=== PATIENT | male | born 1955 | race Caucasian/White ===

== ENCOUNTER 2018-03-31 21:05 | Inpatient (IN) | payer OTHER, BC ==
[~2018-03-31] VITALS: Ht 177.8 cm; Wt 78.6 kg
[2018-03-31 22:17] LABS: ALBUMIN 4.4 g/dL (3.2-4.8); CHLORIDE 88 mEq/L (99-109); POTASSIUM 3.5 mEq/L (3.7-5.4); SODIUM 132 mEq/L (136-147)
[2018-03-31 22:19] LABS: HEMATOCRIT 30.2 % (38.0-50.0); HEMOGLOBIN 10.8 G/DL (12.5-16.6); MCH 35.4 PG (29.0-34.0); MCHC 35.8 G/DL (30.0-36.0); NRBC (%) 0.5 /100 WBC (0-0); RBC DIS.WIDTH-CV 16.8 % (11.8-14.6); RBC DIS.WIDTH-SD 60.8 % (39-53); RED BLOOD COUNT 3.05 M/uL (4.00-5.50); WHITE BLOOD COUNT 3.9 K/uL (4.1-10.2)
[2018-03-31 22:20] LABS: GLUCOSE 105 mg/dL (70-99); TOTAL PROTEIN 7.8 g/dL (6.4-8.3)
[2018-03-31 22:22] LABS: TOTAL BILIRUBIN 1.8 mg/dL (0.0-1.0)
[2018-03-31 22:23] LABS: ALKALINE PHOSPHATASE 62 IU/L (3-129); SERUM ETHYL ALCOHOL < 10 mg/dL
[2018-03-31 22:24] LABS: CREATININE 1.2 mg/dL (0.6-1.3); GFR ESTIMATE (CALCULATED) > 59 mL/min/ (58.99-99999)
[2018-03-31 22:25] LABS: AST (GOT) 83 IU/L (2-34); UREA NITROGEN (BUN) 19 mg/dL (9-23)
[2018-03-31 22:26] LABS: ALT (GPT) 41 IU/L (3-49)
[2018-03-31 22:27] LABS: TROP-I INTERPRETATION NEGATIVE; TROPONIN-I < 0.01 ng/mL (0.0-0.30)
[2018-03-31 22:53] LABS: IMM.PLATELET FRACTION 9.2 (1-7); PLAT.SUFFICIENCY DECREASED; PLATELET COUNT UNABLE TO REPORT K/uL (156-360)
[2018-04-01] VITALS (7 sets, daily range): BP systolic 106–185; BP diastolic 55–81
[2018-04-01 01:29] LABS: APPEARANCE CLEAR ((CLEAR)); BILIRUBIN NEGATIVE; BLOOD MODERATE; COLOR AMBER ((YELLOW)); GLUCOSE (STRIP) NEGATIVE; KETONES 20; LEUKOCYTES NEGATIVE; NITRITE NEGATIVE; PROTEIN (STRIP) >=500; SPECIFIC GRAVITY 1.023 (1.000-1.030)
[2018-04-01 01:51] LABS: AMPHETAMINE NEGATIVE (500 ng/mL); BARBITURATES NEGATIVE (200 ng/mL); BENZODIAZEPINES NEGATIVE (150 ng/mL); BUPRENORPHINE NEGATIVE (10 ng/mL); COCAINE NEGATIVE (150 ng/mL); METHADONE NEGATIVE (200 ng/mL); METHAMPHETAMINE NEGATIVE (500 ng/mL); OPIATES (MORPHINE) NEGATIVE (100 ng/mL); OXYCODONE NEGATIVE (100 ng/mL); PHENCYCLIDINE NEGATIVE (25 ng/mL); PROPOXYPHENE NEGATIVE (300 ng/mL); THC CANNABINOIDS PRESUMPTIVE POSITIVE (50 ng/mL); TRICYCLIC ANTIDEPRESSANTS NEGATIVE (300 ng/mL)
[2018-04-01 01:53] LABS: BACTERIA RARE /HPF; EPITHELIAL CELLS RARE /HPF; MUCUS 1+ /LPF; RED BLOOD CELLS 0-5 /HPF (0-5); UCUL ADDED? NO; WHITE BLOOD CELLS 0-5 /HPF (0-5)
[2018-04-01 02:28] LABS: INTER. NORMALIZED RATIO 1.1
[2018-04-01 02:31] LABS: PTT 25.9 SEC (25-37)
[2018-04-01 10:01] LABS: HEMATOCRIT 23.7 % (38.0-50.0); MCV 101.7 FL (86-99)
[2018-04-01 10:22] LABS: HEMOGLOBIN 8.1 G/DL (12.5-16.6)
[2018-04-01 15:48] LABS: HEMATOCRIT 23.2 % (38.0-50.0); HEMOGLOBIN 7.8 G/DL (12.5-16.6); MCV 103.6 FL (86-99)
[2018-04-02 00:53] LABS: HEMATOCRIT 22.4 % (38.0-50.0); HEMOGLOBIN 7.8 G/DL (12.5-16.6); MCV 102.3 FL (86-99)
[2018-04-02 06:04] LABS: BASOPHIL (%) 0.9 % (0-1); EOSINOPHIL COUNT 0.1 K/uL (0-0.3); HEMATOCRIT 22.9 % (38.0-50.0); HEMOGLOBIN 7.7 G/DL (12.5-16.6); LYMPHOCYTE COUNT 0.7 K/uL (1.0-2.8); MCH 34.8 PG (29.0-34.0); MCHC 33.6 G/DL (30.0-36.0); MCV 103.6 FL (86-99); MONOCYTE (%) 11.6 % (3-12); MONOCYTE COUNT 0.3 K/uL (0-0.8); NEUTROPHIL (%) 47.5 % (45-76); RBC DIS.WIDTH-CV 16.5 % (11.8-14.6); RBC DIS.WIDTH-SD 61.7 % (39-53); WHITE BLOOD COUNT 2.2 K/uL (4.1-10.2)
[2018-04-02 06:11] LABS: RED BLOOD COUNT 2.21 M/uL (4.00-5.50)
[2018-04-02 06:17] LABS: ALBUMIN 3.3 G/DL (3.2-4.8); ALKALINE PHOSPHATASE 43 IU/L (3-129); ALT (GPT) 28 IU/L (3-49); ANISOCYTOSIS 2+; AST (GOT) 78 IU/L (2-34); CHLORIDE 101 MEQ/L (99-109); CREATININE 0.8 MG/DL (0.6-1.3); GFR ESTIMATE (CALCULATED) > 59 mL/min/ (58.99-99999); IMM.PLATELET FRACTION 6.2 (1-7); MACROCYTES 1+; PLAT.SUFFICIENCY DECREASED; POTASSIUM 3.2 MEQ/L (3.7-5.4); SODIUM 134 MEQ/L (136-147); TOTAL BILIRUBIN 1.1 MG/DL (0.0-1.0); TOTAL PROTEIN 5.6 G/DL (6.4-8.3); UREA NITROGEN (BUN) 14 mg/dL (9-23)
[2018-04-02 06:19] LABS: PLATELET COUNT 33 K/uL (156-360)
[2018-04-02 06:23] LABS: GLUCOSE 75 mg/dL (70-99)
[2018-04-02 07:06] VITALS: BP 126/60
[2018-04-02 07:09] VITALS: BP 150/65
[2018-04-02 12:27] LABS: HEMATOCRIT 25.3 % (38.0-50.0); HEMOGLOBIN 8.4 G/DL (12.5-16.6); MCV 103.7 FL (86-99)
[2018-04-02 15:29] VITALS: BP 159/79
[2018-04-02 19:43] LABS: HEMATOCRIT 25.9 % (38.0-50.0); HEMOGLOBIN 8.5 G/DL (12.5-16.6); MCV 105.7 FL (86-99)
[2018-04-02 23:17] VITALS: BP 109/60
== END 2018-04-03 02:34 | disposition left against medical advice (07) | DRG 378 ==
LOC: TRA 21:05 → EDBD 21:05 → EME 21:05 → EDOF 04-01 01:38 → 4EAST 04-01 01:38 → 5SOUTH 04-01 01:38 → ENRESERV 04-01 01:39 → 4EAST 04-01 03:31 → ENRESERV 04-01 14:24 → 5SOUTH 04-01 16:31
PROVIDERS: Internal Medicine; Physician Assistant Medical
PROC: 0DB68ZX Excision of Stomach, Via Natural or Artificial Opening Endoscopic, Diagnostic (ICD-10-PCS; principal; 2018-04-02)
PROC: 0DJ08ZZ Inspection of Upper Intestinal Tract, Via Natural or Artificial Opening Endoscopic (ICD-10-PCS; principal; 2018-04-02)
PROC: 0HQ1XZZ Repair Face Skin, External Approach (ICD-10-PCS; principal; 2018-04-02)
DX: K29.71 Gastritis, unspecified, with bleeding (principal); F10.231 Alcohol dependence with withdrawal delirium; D61.818 Other pancytopenia; D53.9 Nutritional anemia, unspecified; S01.21XA Laceration without foreign body of nose, initial encounter; W18.30XA Fall on same level, unspecified, initial encounter; Y92.009 Unspecified place in unspecified non-institutional (private) residence as the place of occurrence of the external cause; C90.00 Multiple myeloma not having achieved remission; E86.0 Dehydration; E87.6 Hypokalemia; E83.42 Hypomagnesemia; R44.3 Hallucinations, unspecified; K70.9 Alcoholic liver disease, unspecified; S40.812A Abrasion of left upper arm, initial encounter; S40.811A Abrasion of right upper arm, initial encounter; I25.10 Atherosclerotic heart disease of native coronary artery without angina pectoris; I10 Essential (primary) hypertension; K44.9 Diaphragmatic hernia without obstruction or gangrene; G40.89 Other seizures; I25.2 Old myocardial infarction; F17.200 Nicotine dependence, unspecified, uncomplicated; Z91.19 Patient's noncompliance with other medical treatment and regimen; Z85.820 Personal history of malignant melanoma of skin; Z95.5 Presence of coronary angioplasty implant and graft
CPT/HCPCS: 70450; 71045; 72125; 80048; 80053; 81003; 82607; 82784; 82948; 83735; 83883 90; 84165; 84484; 84999; 85014; 85018; 85025; 85027; 85046; 85610; 85730; 86850; 86900; 86901; 88305; 88342 TC; 93005; 99281; 99285; C9113; G0480; J1630; J1953; J2060; J3411; J3475; J3480; J7030; J7050